=== PATIENT | female | born 1965 | race Caucasian/White ===

== ENCOUNTER → 2021-03-26 10:18 | Outpatient (CLI) | payer OTHER, SELFPAY ==
--- NOTE | ~2021-03-26 | MM_ITS ---
EXAMINATION: MM screening [facility] BI w nawaf HISTORY: Screening mammogram, family history of breast cancer in her sister. TECHNIQUE: Craniocaudal and mediolateral oblique 3-D tomosynthesis images were obtained and synthetic 2-D images were generated. CAD analysis was submitted and interpreted. COMPARISON: 10/05/2015, 10/16/2009 BREAST PARENCHYMAL COMPOSITION: The breasts are heterogeneously dense, which may obscure small masses . FINDINGS: Scattered benign-appearing calcifications are present. There is a stable right breast mass with an associated biopsy marker. There is no evidence of suspicious mass, calcification, or architec tural distortion to suggest malignancy in either breast. There has been no suspicious interval change . IMPRESSION: 1. No mammographic evidence of malignancy. 2. Recommend routine screening mammography in one year. BI-RADS Category 2: Benign finding(s). Reviewed, dictated and finalized at location A.
== END ==
PROVIDERS: Visit Provider Nurse Practitioner
DX: Z12.31 Encounter for screening mammogram for malignant neoplasm of breast (principal)
CPT/HCPCS: 77063; 77067

== ENCOUNTER → 2022-05-28 12:55 | Outpatient (CLI) | payer OTHER, SELFPAY ==
--- NOTE | ~2022-05-28 | MM_ITS ---
EXAMINATION: MM screening [facility] BI w nawaf HISTORY: Screening mammogram TECHNIQUE: Craniocaudal and mediolateral oblique 3-D tomosynthesis images were obtained and synthetic 2-D images were generated. CAD analysis was submitted and interpreted. COMPARISON: 03/26/2021, 10/05/2015 bilateral screening mammogram examinations BREAST PARENCHYMAL COMPOSITION: The breasts are heterogeneously dense, which may obscure small masses . FINDINGS: Stable approximately 1.4 cm circumscribed mass with biopsy marker in the upper mid right br east anteriorly. Numerous bilateral benign-appearing microcalcifications are scattered in the fibrogl andular stroma bilaterally. There is asymmetry and possible architectural distortion in the outer right breast on CC projection; diagnostic right mammogram and right breast ultrasound examination are recommended. Otherwise there is no evidence of suspicious mass, calcification, or architectural distortion to sugg est malignancy in either breast. There has been no other suspicious interval change. IMPRESSION: 1. Mammographic asymmetry and possible architectural distortion, upper outer right breast on CC view 2. Diagnostic right mammogram and right breast ultrasound examination are recommended BI-RADS Category 0: Incomplete: Needs additional imaging evaluation. Reviewed, dictated and finalized at location A. IMPRESSION: 1. Mammographic asymmetry and possible architectural distortion, upper outer ri ght breast on CC view 2. Diagnostic right mammogram and right breast ultrasound examination are recom mended BI-RADS Category 0: Incomplete: Needs additional imaging evaluation.
--- NOTE | ~2022-05-28 | US_ITS ---
EXAMINATION: US transvaginal DATE: 05/28/2022 13:41 INDICATION: Abnormal uterine bleeding. Pelvic pain. Premenopausal. TECHNIQUE: Multiple transvaginal sonographic images of the pelvis were obtained. COMPARISON: None. FINDINGS: The uterus measures 7.6 x 5.8 x 6.4 cm. There is no free fluid in the pelvis. The endometrial complex measures 9 mm in thickness. The right ovary measures 2.8 x 2.2 x 2.9 cm. The left ovary measures 2.5 x 1.3 x 1.2 cm. There is normal vascular flow in the ovaries. IMPRESSION: 1. No etiology for the patient's symptoms. Reviewed, dictated and finalized at location A.
== END ==
PROVIDERS: PCP Physician Assistant; Visit Provider Nurse Practitioner
DX: Z12.31 Encounter for screening mammogram for malignant neoplasm of breast (principal); N93.8 Other specified abnormal uterine and vaginal bleeding; R10.2 Pelvic and perineal pain; R92.8 Other abnormal and inconclusive findings on diagnostic imaging of breast
CPT/HCPCS: 76830; 77063; 77067

== ENCOUNTER → 2022-06-25 07:48 | Outpatient (CLI) | payer OTHER, SELFPAY ==
--- NOTE | ~2022-06-25 | MMUS_ITS ---
EXAMINATION: MM diagnostic arlette RT w nawaf, US breast RT limited HISTORY: Asymmetry and possible architectural distortion of the right breast on screening mammogram TECHNIQUE: Additional 3-D tomosynthesis images of the right breast were performed and synthetic 2-D i mages were generated. CAD analysis was submitted and interpreted. High resolution limited right breas t ultrasound was performed. COMPARISON: 05/28/2022, 03/26/2021, 07/15/2017 FINDINGS: MAMMOGRAPHIC FINDINGS: There is a return to baseline fibroglandular appearance with spot compression of the right breast in the area questioned on screening mammogram. There is a stable mass with biopsy change in the anterior third of the upper breast. ULTRASOUND: There is no evidence of focal abnormal solid or cystic mass in the vicinity of the mammographic findi ng in question. IMPRESSION: 1. No mammographic or sonographic evidence of malignancy. 2. Recommend routine screening mammography in one year. BI-RADS Category 2: Benign finding(s). Reviewed, dictated and finalized at location A. IMPRESSION: 1. No mammographic or sonographic evidence of malignancy. 2. Recommend routine screening mammography in one year. BI-RADS Category 2: Benign finding(s).
== END ==
PROVIDERS: PCP Physician Assistant; Visit Provider Obstetrics & Gynecology Gynecology
DX: R92.8 Other abnormal and inconclusive findings on diagnostic imaging of breast (principal)
CPT/HCPCS: 76642; 77061; 77065; G0279

== ENCOUNTER 2023-08-19 01:23 | Day surgery (SDC) | payer BC, SELFPAY ==
[2023-08-03 12:51] VITALS: BMI 25.9
--- NOTE | 2023-08-17 10:04 | SUR.PREOP ---
Patient called regarding upcoming procedure. Reviewed preop instructions, appointment times, and procedure prep.
--- NOTE | 2023-08-18 16:34 | PM.HPGS ---
History of Present Illness History of Present Illness Consent: Risks, benefits, and alternatives have been discussed and questions answered. Patient agrees to proceed with procedure. Chief complaint: neoplasm screening Narrative: Fern Wilson is a 58 year old female referred for colon cancer screening. Review of Systems Review of Systems: All systems reviewed & are unremarkable except as noted in HPI and below PMFSH Social History Social History Smoking status: Never smoker Alcohol intake: current Drinks per week: 1 Substance use type: does not use Living arrangements: alone Meds Home Medications and Allergies Home Medications Medication Instructions Recorded Confirmed Type estradiol-norethindrone acet 0.5 1 tablet PO DAILY 08/03/23 08/19/23 History mg-0.1 mg tablet Allergies Allergy/AdvReac Type Severity Reaction Status Date / Time No Known Allergies Allergy Verified 08/19/23 09:25 Exam Resp: Auscultation: clear to auscultation bilaterally Cardio: Rate: regular rate Rhythm: regular rhythm GI: GI Palp: Yes Soft to palpation and No Tenderness to palpation present (GI) Assessment and Plan Assessment and plan (1) Colon cancer screening: Code(s): Z12.11 - Encounter for screening for malignant neoplasm of colon Status: Acute Assessment and Plan: Colonoscopy with possible biopsy or polypectomy or cautery or injection of substances.
[2023-08-19 09:27] VITALS: BP 107/51; PULSE 77; RESP 16; TEMP 36.3; O2SAT 100
[2023-08-19] MEDS: LACTATED RINGERS 1,000 ML 150 ML IV CONT (09:36)
--- NOTE | 2023-08-19 10:06 | P.PNAN_ITS ---
Anes - Initial Pre Proc Eval Procedure: Operation Date: 08/19/23 10:30 Proposed Procedures p Screening Colonoscopy - Get Barry MD Date/Time: 08/19/23 10:06 Surgeon: Get Barry MD Pre Op Diagnosis: neoplasm screening Patient Data Age: 58 Gender: F Height: 1.63 m Weight: 69 kg Last Vital Signs Temp 97.3 F L 08/19/23 09:27 Pulse 77 08/19/23 09:27 Resp 16 08/19/23 09:27 BP 107/51 L 08/19/23 09:27 Pulse Ox 100 08/19/23 09:27 O2 Del Method Room Air 08/19/23 09:27 Allergies Allergy/AdvReac Type Severity Reaction Status Date / Time No Known Allergies Allergy Verified 08/19/23 09:25 Home Medications Medication Instructions Recorded Confirmed Type estradiol-norethindrone acet 0.5 1 tablet PO DAILY 08/03/23 08/19/23 History mg-0.1 mg tablet Patient hx anesthesia problems: none Family hx anesthesia problems: none Results Review: All pre-operative results and documents have been reviewed as part of the pre- operative evaluation. [facility] Social History Social History Smoking status: Never smoker Alcohol intake: current Drinks per week: 1 Substance use type: does not use Living arrangements: alone Anes - Eval Final PreProcedure Day of Procedure 08/19/23 10:06 Patient weight: normal Heart: regular rate and rhythm Lungs: clear to auscultation Airway: Mallampati scale class II Neurological: alert and oriented Last oral intake: >/= 8 hours ASA classification: II Emergent: no Anesthetic plan: proceed Anesthesia type and monitoring: general GIVS and standard monitoring Results Review: All pre-operative results and documents have been reviewed as part of the pre- operative evaluation. Informed Consent: The patient's anesthetic plan and its attendant risks and benefits were discussed with the patient/family/POA. Questions were solicited and answers provided to the satisfaction of the patient/family/POA.
[2023-08-19 10:23] VITALS: BP 102/71; PULSE 68; RESP 22; O2SAT 98
[2023-08-19 10:33] VITALS: BP 96/54; PULSE 65; RESP 18; O2SAT 100
[2023-08-19 10:43] VITALS: BP 109/63; PULSE 66; RESP 18; O2SAT 100
== END 2023-08-19 10:53 | disposition home or self-care (01) ==
PROVIDERS: PCP Physician Assistant; Visit Provider Internal Medicine Gastroenterology
PROC: 0DJD8ZZ Inspection of Lower Intestinal Tract, Via Natural or Artificial Opening Endoscopic (ICD-10-PCS; CPT 45378; principal; 2023-08-19 10:30)
DX: Z12.11 Encounter for screening for malignant neoplasm of colon (principal); K64.8 Other hemorrhoids; K63.5 Polyp of colon
CPT/HCPCS: 45380; 88305; J2704; J7120

== ENCOUNTER → 2023-11-10 13:02 | Outpatient (CLI) | payer BC, SELFPAY ==
--- NOTE | ~2023-11-10 | MM_ITS ---
EXAMINATION: MM screening [facility] BI w nawaf HISTORY: Screening TECHNIQUE: Craniocaudal and mediolateral oblique 3-D tomosynthesis images were obtained and synthetic 2-D images were generated. CAD analysis was submitted and interpreted. COMPARISON: Comparison to multiple prior studies sequentially, with oldest reviewed study dated 10/05. BREAST PARENCHYMAL COMPOSITION: Dense: The breasts are heterogeneously dense, which may obscure small masses FINDINGS: There is a stable mass in the upper central aspect of the right breast anteriorly with asso ciated tissue marker from prior biopsy. There are stable subareolar punctate breast calcifications bi laterally. There is a new area of architectural distortion in the subareolar location of the left fahad ast on MLO view. IMPRESSION: 1. New architectural distortion subareolar aspect of the left breast on MLO view. 2. Additional mammographic views and possible breast ultrasound are recommended. BI-RADS Category 0: Incomplete: Needs additional imaging evaluation. Reviewed, dictated and finalized at location A. CLEANER IMPRESSION: 1. New architectural distortion subareolar aspect of the left breast on MLO vie w. 2. Additional mammographic views and possible breast ultrasound are recommended . BI-RADS Category 0: Incomplete: Needs additional imaging evaluation.
== END ==
PROVIDERS: PCP Physician Assistant; Visit Provider Advanced Practice Midwife
DX: Z12.31 Encounter for screening mammogram for malignant neoplasm of breast (principal); R92.8 Other abnormal and inconclusive findings on diagnostic imaging of breast
CPT/HCPCS: 77063; 77067

== ENCOUNTER 2023-12-14 07:47 | Outpatient (CLI) | payer BC, SELFPAY ==
--- NOTE | ~2023-12-14 | US_ITS ---
US breast LT complete DATE: 12/14/2023 08:44 INDICATION: Architectural distortion reported on November 10, 2023 screening mammogram TECHNIQUE: Real-time imaging of complete left breast, with color flow imaging COMPARISON: November 10, 2023 bilateral screening mammogram December 14, 2023 diagnostic left mammogram FINDINGS: 2.6 x 5.4 x 5.5 mm parallel circumscribed relatively sonolucent lesion with through transmi ssion posterior enhancement is noted in the subareolar area. Benign in appearance, likely a cyst. No suspicious mass or suspicious shadowing is detected in the left breast. IMPRESSION: BI-RADS Category 2: Benign Recommendation: Routine annual mammographic screening Reviewed, dictated and finalized at Location A. Reviewed, dictated and finalized at location A.
--- NOTE | ~2023-12-14 | MM_ITS ---
EXAMINATION: MM diagnostic arlette LT w nawaf HISTORY: New architectural distortion reported in the subareolar left breast on screening MLO view of November 10, 2023 TECHNIQUE: Additional 3-D tomosynthesis images of the left breast were performed and synthetic 2-D im ages were generated. CAD analysis was submitted and interpreted. High resolution complete left breast ultrasound examination including all 4 quadrants and subareolar area was performed. COMPARISON: November 10, 2023 bilateral screening mammogram FINDINGS: MAMMOGRAPHIC FINDINGS: Numerous benign appearing punctate microcalcifications are noted in the left breast. There is heterogeneously dense stroma which may obscure small masses. No architectural distortion is evident. ULTRASOUND: Subareolar area: 2.6 x 5.4 x 5.5 mm parallel circumscribed relatively sonolucent lesion with through transmission posterior enhancement, without internal vascularity, benign in appearance IMPRESSION: 1. No mammographic or sonographic evidence of malignancy 2. Routine annual mammographic screening is recommended BI-RADS Category 2: Benign finding(s). Reviewed, dictated and finalized at location A.
== END 2023-12-14 07:48 ==
LOC: MICIMG 07:48
PROVIDERS: PCP Obstetrics & Gynecology Gynecology; Visit Provider Obstetrics & Gynecology Gynecology
DX: R92.8 Other abnormal and inconclusive findings on diagnostic imaging of breast (principal)
CPT/HCPCS: 76641; 77061; 77065; G0279

== ENCOUNTER 2024-05-26 11:04 | Outpatient (CLI) | payer OTHER, SELFPAY ==
--- NOTE | ~2024-05-26 | US_ITS ---
US axilla RT 05/26/2024 11:15 Indication: Right axillary palpable mass Procedure: High-resolution ultrasound of the right axilla Comparison: No prior studies for comparison. Findings: Normal heterogeneous echotexture without focal solid or cystic mass. No evidence for lympha denopathy. Impression: 1: Normal right axillary ultrasound. No lymphadenopathy. BI-RADS CATEGORY 1 - NEGATIVE Reviewed, dictated and finalized at location B. Impression: 1: Normal right axillary ultrasound. No lymphadenopathy. BI-RADS CATEGORY 1 - NEGATIVE
== END 2024-05-26 11:05 | disposition home or self-care (01) ==
LOC: MICIMG 11:05
PROVIDERS: PCP Advanced Practice Midwife; Visit Provider Advanced Practice Midwife
DX: N63.31 Unspecified lump in axillary tail of the right breast (principal)
CPT/HCPCS: 76882

== ENCOUNTER 2024-06-10 14:20 | Outpatient (CLI) | payer OTHER, SELFPAY ==
--- NOTE | ~2024-06-10 | DEXA_ITS ---
Bone Density Report Name: SONYA ZABALA Age: 59 Sex: Female Ethnicity: White Date of : 1965 Indication: postmenopausal; screening for osteoporosis; height loss; prior fracture; Referring Provider: MABEL RIVERA Study: Bone densitometry was performed. Exam Date: June 10, 2024 Accession number: [id number] Bone Density: Region BMD T-score Z-score Classification AP Spine(L1-L4) 0.946 -0.9 0.3 Normal Femoral Neck (Left) 0.737 -1.0 0.2 Normal Total Hip (Left) 0.881 -0.5 0.3 Normal Femoral Neck (Right) 0.749 -0.9 0.3 Normal Total Hip (Right) 0.856 -0.7 0.1 Normal Femoral Neck Mean 0.743 -1.0 0.2 Normal Total Hip Mean 0.869 -0.6 0.2 Normal World Health Organization criteria for BMD impression classify patients as: Normal (T-score at or above -1.0), Osteopenia (T-score between -1.0 and -2.5), or Osteoporosis (T-score at or below -2.5). 10-year Fracture Risk: FRAX not reported because: All T-scores for Spine Total, Hip Total, Femoral Neck at or above -1.0 Clinical Information Provided by Patient: Has had a low trauma fracture Has used the following medications: Vitamin D Patient maximum height was 64 Menopause Age: 57 Onset of menses at age 15 Number of children 2 Missed period for more than 6 months in a row Impression: The patient has normal bone mass. The patient has risk factors, including: previous fracture. Discussion: BONE DENSITY IS ABOVE THE MINIMUM DESIRABLE LEVEL AT ALL SKELETAL SITES TESTED. This patient?s bone mineral density is above the minimum desirable level (T-score -1.0 or better) at all sites measured. The patient should follow a healthful lifestyle (good nutrition with adequate calcium and vitamin D, and appropriate weight-bearing exercise). Follow-Up: Consider repeating this study in 5 years or sooner if there is some new clinical indication. Reported by: TANJA on 06/10/2024 2:42:00 PM. Reviewed, dictated and finalized at location AHugo ASHLEY
== END 2024-06-10 14:21 | disposition home or self-care (01) ==
LOC: CHSIMG 14:23
PROVIDERS: PCP Advanced Practice Midwife; Visit Provider Advanced Practice Midwife
DX: Z78.0 Asymptomatic menopausal state (principal)
CPT/HCPCS: 77080

== ENCOUNTER 2024-11-14 12:29 | Outpatient (CLI) | payer OTHER, SELFPAY ==
--- NOTE | ~2024-11-14 | MM_ITS ---
EXAMINATION: MM screening [facility] BI w nawaf HISTORY: Screening mammogram, family history of breast cancer in her sister. TECHNIQUE: Craniocaudal and mediolateral oblique 3-D tomosynthesis images were obtained and synthetic 2-D images were generated. CAD analysis was submitted and interpreted. COMPARISON: 12/14/2023, 11/10/2023, 06/25/2022, 05/28/2022, 03/26/2021 BREAST PARENCHYMAL COMPOSITION:Not Dense. There are scattered areas of fibroglandular density. FINDINGS: Stable subareolar right breast mass with biopsy clip. Stable bilateral benign calcification s. No suspicious mass, calcification, or architectural distortion are identified in either breast to suggest malignancy. There has been no suspicious interval change. IMPRESSION: No mammographic evidence of malignancy. Recommend routine screening mammography in one year. BI-RADS Category 2: Benign finding(s). Reviewed, dictated and finalized at [facility]. [employer]ATOR
== END 2024-11-14 12:30 | disposition home or self-care (01) ==
LOC: MICIMG 12:30
PROVIDERS: PCP Family Medicine; Visit Provider Obstetrics & Gynecology Gynecology
DX: Z12.31 Encounter for screening mammogram for malignant neoplasm of breast (principal); Z80.3 Family history of malignant neoplasm of breast
CPT/HCPCS: 77063; 77067